=== PATIENT | female | born 1955 | race Caucasian/White ===

== ENCOUNTER 2021-12-05 09:55 | Emergency (ER) | payer BC ==
--- NOTE | 2021-12-05 10:54 | RAD REPORT ---
EXAM DESCRIPTION: CT - Head Brain Wo Cont - 12/05/2021 10:44 am CLINICAL HISTORY: Syncope COMPARISON: None. TECHNIQUE: Computed axial tomography of the head was obtained. IV contrast was not requested. All CT scans are performed using dose optimization technique as appropriate and may include automated exposure control or mA/KV adjustment according to patient size. FINDINGS: An intracranial bleed is not seen . The ventricles are normal in caliber. No significant hypodense areas within the brain visualized No extra-axial fluid collection is noted. Fluid within the sinuses/ mastoids is not seen. IMPRESSION: No acute intracranial abnormality is seen. If patient's symptoms persist MRI of the bra in would be recommended.
[2021-12-05 11:31] LABS: Urine Blood Negative (Negative); Urine Glucose Negative (Negative); Urine Protein Negative (Negative); Urine Specific Gravity 1.015 (1.005-1.030)
[2021-12-05 11:43] LABS: Absolute Lymphocytes (CBC) 1.1 K/uL (0.7-4.9); Hematocrit 36.9 % (36.0-45.0); Lymphocytes % 13.5 % (15.3-44.8); MCV 93.1 fL (80-100); MPV 8.2 fL (7.6-11.3); RBC Red Blood Cell Count 3.96 M/uL (3.86-4.86)
[2021-12-05 11:46] LABS: Protime INR 0.9
[2021-12-05 11:50] LABS: Magnesium 1.9 mg/dL (1.8-2.4); Potassium 4.1 mmol/L (3.5-5.1); Troponin High Sensitivity 3.7 pg/mL (<58.9)
--- NOTE | 2021-12-05 12:59 | EDPHYS ---
Physician Documentation [facility] Name: Jeniffer Rivero Age: 65 yrs Sex: Female : 1955 Arrival Date: 12/05/2021 Time: 10:15 Bed 13 Private MD: ED Physician Usman Peña HPI: 12/05 11:04 This 65 yrs old Female presents to ER via EMS with complaints of near syncope, general rn weakness. 11:04 The patient has experienced near-syncope. Onset: The symptoms/episode began/occurred rn just prior to arrival. Duration: This was a single episode. Associated injury: The patient did not suffer any apparent associated injury. Associated signs and symptoms: Pertinent positives: diarrhea, dizziness, weakness, Pertinent negatives: abdominal pain, chest pain, headache, palpitations, seizure, shortness of breath. Current symptoms:. The patient has not experienced similar symptoms in the past. The patient has not recently seen a physician. 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 Never passed out completely. Reports feels better already. Has been on vacation recently, camping, and worked outdoors 2 days ago, felt heat exhaustion but got better. Has had diarrhea several times today, non-bloody. No fever. + generalized weakness without focal weakness.. Historical: - Allergies: 10:24 No Known Allergies; kr3 - Home Meds: 10:24 None [Active]; kr3 - PSHx: 10:24 spinal fusion L3L4; kr3 - Immunization history:: Adult Immunizations up to date. - Social history:: Smoking status: Patient/guardian denies using tobacco, the patient reports quitting approximately 7 years ago. - Family history:: not pertinent. - Hospitalizations: : No recent hospitalization is reported. ROS: 11:07 Constitutional: Negative for fever, chills, and weight loss, Eyes: Negative for injury, rn pain, redness, and discharge, Neck: Negative for injury, pain, and swelling, Cardiovascular: Negative for chest pain, palpitations, and edema, Respiratory: Negative for shortness of breath, cough, wheezing, and pleuritic chest pain, Abdomen/GI: Negative for abdominal pain, nausea, vomiting, and constipation, Back: Negative for injury and pain, : Negative for injury, bleeding, discharge, and swelling, MS/Extremity: Negative for injury and deformity, Skin: Negative for injury, rash, and discoloration, Neuro: Negative for headache, numbness, tingling, and seizure. Exam: 11:07 Constitutional: This is a well developed, well nourished patient who is awake, alert, rn appears anxious Head/Face: Normocephalic, atraumatic. Eyes: Pupils equal round and reactive to light, extra-ocular motions intact. ENT: dry MM Cardiovascular: Regular rate and rhythm. No pulse deficits. Respiratory: No increased work of breathing, no retractions or nasal flaring. Abdomen/GI: Soft, non-tender Skin: Warm, dry MS/ Extremity: Pulses equal, no cyanosis Neuro: Awake and alert, GCS 15, oriented to person, place, time, and situation. Cranial nerves II-XII grossly intact. Motor strength 5/5 in all extremities. Sensory grossly intact. Cerebellar exam normal. 14:38 ECG was reviewed by the Attending Physician. rn Vital Signs: 10:16 BP 168 / 87; Pulse 86; Resp 18; Pulse Ox 98% on R/A; kr3 10:22 Temp 98.2; Weight 55.34 kg; Height 5 ft. 2 in. (157.48 cm); Pain 0/10; kr3 11:34 BP 129 / 74; Pulse 77; Resp 18; Pulse Ox 100% ; kr3 12:24 BP 122 / 78; Pulse 74; Resp 16; Pulse Ox 100% on R/A; kr3 13:00 BP 139 / 80; Pulse 73; Resp 16; Pulse Ox 100% on R/A; kr3 10:22 Body Mass Index 22.31 (55.34 kg, 157.48 cm) kr3 MDM: 10:17 Patient medically screened. rn 12:57 Differential Diagnosis: cardiac arrhythmia, vasovagal episode, COVID, viral syndrome, rn hyperventilation, anxiety, dehydration. Data reviewed: vital signs, nurses notes, lab test result(s), EKG, radiologic studies, CT scan, and as a result, I will discharge patient. Counseling: I had a detailed discussion with the patient and/or guardian regarding: the historical points, exam findings, and any diagnostic results supporting the discharge/admit diagnosis, lab results, radiology results, the need for outpatient follow up, to return to the emergency department if symptoms worsen or persist or if there are any questions or concerns that arise at home. Response to treatment: the patient's symptoms have markedly improved after treatment, the patient's condition has returned to base line, the patient is now symptom free, and as a result, I will discharge patient. Special discussion: I discussed with the patient/guardian in detail that at this point there is no indication for admission to the hospital. It is understood, however, that if the symptoms persist or worsen the patient needs to return immediately for re-evaluation. ED course: NO acute findings in blood or CT head. Will dc home with pcp f/u and given strict return precautions. Repeat neuro exam still normal. Stable vitals. Only intervention was IVFs, and back to baseline.. 12/05 10:20 Order name: Basic Metabolic Panel; Complete Time: 12:14 rn 12/05 10:20 Order name: CBC with Diff; Complete Time: 12:14 12/05 10:20 Order name: CPK; Complete Time: 12:14 rn 12/05 10:20 Order name: Magnesium; Complete Time: 12:14 rn 12/05 10:20 Order name: Protime (+inr); Complete Time: 12:14 rn 12/05 10:20 Order name: Ptt, Activated; Complete Time: 12:14 rn 12/05 10:20 Order name: CT Head Brain wo Cont; Complete Time: 10:56 rn 12/05 10:20 Order name: EKG; Complete Time: 10:20 rn 12/05 10:20 Order name: Cardiac monitoring; Complete Time: 10:42 rn 12/05 10:20 Order name: EKG - Nurse/Tech; Complete Time: 12:06 rn 12/05 10:20 Order name: SARS-COV-2 RT PCR (Document "Date of Onset" if Symptomatic); Complete Time: rn 12:49 12/05 10:20 Order name: Troponin High Sensitivity; Complete Time: 12:14 rn 12/05 11:32 Order name: Urine Dipstick-Ancillary; Complete Time: 12:14 EDMS 12/05 10:20 Order name: IV Saline Lock; Complete Time: 10:41 rn 12/05 10:20 Order name: Labs collected and sent; Complete Time: 10:41 rn 12/05 10:20 Order name: O2 Per Protocol; Complete Time: 10:41 rn 12/05 10:20 Order name: O2 Sat Monitoring; Complete Time: :41 rn 12/05 10:20 Order name: Urine Dipstick-Ancillary (obtain specimen); Complete Time: 11:25 rn EC:38 Rate is 77 beats/min. Rhythm is regular. QRS [place] is Normal. UT interval is normal. QRS rn interval is normal. QT interval is normal. No Q waves. T waves are Normal. No ST changes noted. Clinical impression: Normal ECG. Interpreted by me. Reviewed by me. Administered Medications: 10:35 Drug: NS 0.9% 1000 ml {Note: given in route to hoapital.} Route: IV; Rate: 1000 ml; kr3 Site: right antecubital; 12:06 Follow up: Response: No adverse reaction; IV Intake: 1000ml kr3 13:17 Follow up: Response: No adverse reaction; IV Status: Completed infusion; IV Intake: kr3 1000ml Disposition Summary: 12/05/21 12:58 Discharge Ordered Location: Home rn Problem: new rn Symptoms: have improved rn Condition: Stable rn Diagnosis - Near Syncope rn - Dehydration rn Followup: rn - With: Private Physician - When: As needed - Reason: Recheck today's complaints, Re-evaluation by your physician Discharge Instructions: - Discharge Summary Sheet rn - Dehydration, Adult rn - Near-Syncope rn Forms: - Medication Reconciliation Form rn - Thank You Letter rn - Antibiotic internal carver - Prescription Opioid Use rn Signatures: Dispatcher [employer] Usman Ortiz MD MD rn Reid, Kelley, RN RN kr3
--- NOTE | 2021-12-05 12:59 | ER ---
Nurse's Notes [facility] Name: Jeniffer Rivero Age: 65 yrs Sex: Female : 1955 Arrival Date: 12/05/2021 Time: 10:15 Bed 13 Private MD: Diagnosis: Near Syncope;Dehydration Presentation: 12/05 10:16 Chief complaint: Patient states: was driving and pulled over due to general weakness. kr3 Coronavirus screen: Vaccine status: Patient reports receiving the 2nd dose of the covid vaccine. Client denies travel out of the [place] in the last 14 days. diarrhea, fatigue. Ebola Screen: Patient denies travel to an Ebola-affected area in the 21 days before illness onset. 10:16 Method Of Arrival: EMS kr3 10:22 Initial Sepsis Screen: Does the patient meet any 2 criteria? No. Patient's initial kr3 sepsis screen is negative. Does the patient have a suspected source of infection? No. Patient's initial sepsis screen is negative. Risk Assessment: Do you want to hurt yourself or someone else? Patient reports no desire to harm self or others. Onset of symptoms was December 05, 2021. 10:22 Acuity: RIZWAN 3 kr3 Triage Assessment: 10:26 General: Appears distressed, well groomed. Pain: Denies pain. kr3 10:45 General: Behavior is cooperative, anxious. kr3 Historical: - Allergies: 10:24 No Known Allergies; kr3 - Home Meds: 10:24 None [Active]; kr3 - PSHx: 10:24 spinal fusion L3L4; kr3 - Immunization history:: Adult Immunizations up to date. - Social history:: Smoking status: Patient/guardian denies using tobacco, the patient reports quitting approximately 7 years ago. - Family history:: not pertinent. - Hospitalizations: : No recent hospitalization is reported. Screenin:35 Abuse screen: Denies threats or abuse. Nutritional screening: No deficits noted. kr3 Tuberculosis screening: No symptoms or risk factors identified. Fall Risk IV access (20 points). Gait- Weak (10 pts.). 11:36 Fall Risk Total Mitchell Fall Scale indicates Low Risk Score (25-44 pts). kr3 11:36 Fall Risk Total Mitchell Fall Scale indicates Low Risk Score (25-44 pts). Side Rails Up X kr3 2. Assessment: 11:34 Reassessment: Patient and/or family updated on plan of care and expected duration. Pain kr3 level reassessed. Patient states feeling better. Patient states symptoms have improved. 12:25 Reassessment: No changes from previously documented assessment. Patient and/or family kr3 updated on plan of care and expected duration. Pain level reassessed. 13:13 Reassessment: No changes from previously documented assessment. Patient and/or family kr3 updated on plan of care and expected duration. Pain level reassessed. Vital Signs: 10:16 BP 168 / 87; Pulse 86; Resp 18; Pulse Ox 98% on R/A; kr3 10:22 Temp 98.2; Weight 55.34 kg; Height 5 ft. 2 in. (157.48 cm); Pain 0/10; kr3 11:34 BP 129 / 74; Pulse 77; Resp 18; Pulse Ox 100% ; kr3 12:24 BP 122 / 78; Pulse 74; Resp 16; Pulse Ox 100% on R/A; kr3 13:00 BP 139 / 80; Pulse 73; Resp 16; Pulse Ox 100% on R/A; kr3 10:22 Body Mass Index 22.31 (55.34 kg, 157.48 cm) kr3 ED Course: 10:15 Patient arrived in ED. kr3 10:17 Usman Peña MD is Attending Physician. rn 10:22 Angela Altman RN is Primary Nurse. kr3 10:24 Triage completed. kr3 10:41 Troponin High Sensitivity Sent. kr3 10:43 Arm band placed on Patient placed in an exam room, on a stretcher. kr3 10:46 CT Head Brain wo Cont In Process Unspecified. EDMS 10:46 Inserted saline lock: 20 gauge. Maintain EMS IV. Dressing intact. Good blood return kr3 noted. Site clean \\T\\ dry. Gauge \\T\\ site: 20 gauge RAC. 10:47 No provider procedures requiring assistance completed. kr3 11:31 SARS-COV-2 RT PCR (Document "Date of Onset" if Symptomatic) Sent. kr3 11:31 Troponin High Sensitivity Sent. kr3 11:44 Bed in low position. Call light in reach. Side rails up X 1. kr3 13:13 IV discontinued, intact, bleeding controlled, No redness/swelling at site. Pressure kr3 dressing applied. Administered Medications: 10:35 Drug: NS 0.9% 1000 ml {Note: given in route to hoapital.} Route: IV; Rate: 1000 ml; kr3 Site: right antecubital; 12:06 Follow up: Response: No adverse reaction; IV Intake: 1000ml kr3 13:17 Follow up: Response: No adverse reaction; IV Status: Completed infusion; IV Intake: kr3 1000ml Medication: 13:15 VIS not applicable for this client. kr3 Intake: 12:06 IV: 1000ml; Total: 1000ml. kr3 13:17 IV: 1000ml; Total: 2000ml. kr3 Outcome: 12:58 Discharge ordered by . rn 13:15 Discharged to home ambulatory. kr3 13:15 Condition: stable 13:15 Discharge instructions given to patient, Instructed on discharge instructions, follow up and referral plans. Demonstrated understanding of instructions, follow-up care. 13:18 Patient left the ED. kr3 Signatures: Dispatcher [employer] EDUsman Valdivia MD MD rn Reid, Kelley, RN RN kr3
[2021-12-05 14:05] VITALS: TEMP 98.2
[2021-12-05 14:07] VITALS: O2SAT 100
[2021-12-05 14:10] VITALS: BP 139/80
--- NOTE | 2021-12-06 07:51 | EKG ---
Test Date: 2021-12-05 Test Time: 11:58:36 Fur Finisher Tailor: MIRANDA MEASUREMENT RESULTS: Intervals: Rate: 77 IA: 146 QRSD: 76 QT: 382 QTc: 432 [place]: P: 81 IA: 146 QRS: 72 T: 68 INTERPRETIVE STATEMENTS: Normal sinus rhythm Normal ECG No previous ECG available for comparison Electronically Signed On 12-06-21 07:48:30 CDT by James Walker
--- OUTSIDE RECORDS SUMMARY | 2021-12-14 01:26 | XMS REPORT | Continuity of Care Document ---
:1955 Author Organization [facility] Address [address] [place] [address] Dr. Lara [address] [place] [id number] Care Team Providers Name Role Phone ROMMEL Attending Clinician Unavailable Dasia Rose Attending Clinician [phone] ROMMEL Admitting Clinician Unavailable Payers Payer Name Policy Type Policy Number Effective Date Expiration Date Sharyn mason [place] [id number] 2017 00:00:00 Problems This patient has no known problems. Allergies, Adverse Reactions, Alerts This patient has no known allergies or adverse reactions. Medications This patient has no known medications. Procedures This patient has no known procedures. Encounters Start End Encounter Admission Attending Care Care Encounter Source Date/Time Date/Time Type Type Clinicians Facility Department ID 2020-06-29 2020-06-29 Outpatient [facility] [address] [place] 09:33:00 09:33:00 [facility] 2020-06-28 2020-06-28 Outpatient [facility] [address] [place] 03:33:00 03:33:00 [facility]L [facility] 2020-06-28 2020-06-28 Outpatient [facility] [id number] 00:00:00 00:00:00 , Laurie [id number] Dasia [id number] 2020-05-12 2020-05-12 Outpatient [facility] [address] [place] 12:17:00 12:17:00 _L [facility] Results This patient has no known results.
== END 2021-12-05 13:18 | disposition home or self-care (01) ==
LOC: ER 09:55
DX: E86.0 Dehydration (principal); Z20.822 Contact with and (suspected) exposure to COVID-19
CPT/HCPCS: 96361; 93005; 85025; 80048; 36415; 83735; 82550; 85610; 85730; 81003; 84484; 70450; 96360; 99284; U0003